=== PATIENT | male | born 1995 | race Caucasian/White ===

== ENCOUNTER 2017-03-05 17:13 | Emergency (ER) | payer MEDICAID, OTHER ==
[2017-03-05 17:36] VITALS: TEMP 98.4
[2017-03-05] MEDS ORDERED: METHOCARBAMOL 750 MG TAB PO ONE (20:10)
[2017-03-05] MEDS ORDERED: IBUPROFEN 600 MG TAB PO ONE (20:10)
--- NOTE | 2017-03-05 21:37 | EDPHY ---
H & P Stated Complaint: snowboarding fall saturday/inj coccyx area/pain Source: Patient Exam Limitations: No limitations - Personal History Current Tetanus/Diphtheria Vaccine: Unsure - Medical/Surgical History Hx Asthma: No Hx Chronic Respiratory Disease: No Hx Diabetes: No Hx Cardiac Disease: No Hx Renal Disease: No Hx Cirrhosis: No Hx Alcoholism: No Hx HIV/AIDS: No Hx Splenectomy or Spleen Trauma: No Other PMH: appy - Social History Smoking Status: Current every day smoker Time Seen by Provider: 03/05/17 18:57 HPI/ROS: CHIEF COMPLAINT: low back and right buttock pain HISTORY OF PRESENT ILLNESS: 21-year-old male presents emergency department complaining of low back and buttock pain after a fall snowboarding 5 days ago. Patient went off of a jump and fell 10 feet onto a sharp rock on his butt. Patient states he has been laying on his abdomen since this time due to buttock and low back pain. Patient reports he had bruising and swelling to his right buttock. He has abrasions to his right buttock. Patient denies loss of control of his bowel or bladder, no saddle anesthesias he denies upper back pain , no abdominal pain. He denies neck pain or head strike. Patient has been taking 2 ibuprofen twice a day and icing his butt. He states today his pain is significantly better though his mom was concerned so they came to the emergency department. REVIEW OF SYSTEMS: A comprehensive 10 point review of systems is otherwise negative aside from elements mentioned in the history of present illness. (Marion Ocasio) - Physical Exam Exam: Physical Exam Gen: Alert and Oriented, NAD HEENT: PERRL, moist mucous membranes NECK: No C-spine tenderness CV: regular rate and regular rhythm PULM: CTAB, no wheezes ABDOMEN: soft, non tender to palpation, BS present BACK: Midline lumbar and sacral tenderness to palpation, right-sided paraspinal spasm NEURO: Neurologically grossly intact EXTREMITIES: 2+ pedal pulses, sensation intact to light touch full passive range of motion right hip SKIN: multiple abrasions to right buttock PSYCH: answers questions appropriately. (Marion Ocasio) Constitutional: Initial Vital Signs Temperature (C) 36.9 C 03/05/17 17:33 Heart Rate 67 03/05/17 17:33 Respiratory Rate 18 03/05/17 17:33 Blood Pressure 115/59 L 03/05/17 17:33 O2 Sat (%) 98 03/05/17 17:33 O2 Delivery Mode Room Air Allergies/Adverse Reactions: No Known Allergies Allergy (Verified 03/05/17 17:32) Home Medications: Medication Instructions Recorded Methocarbamol [Robaxin 750 mg (*)] 750 mg PO QID PRN #20 tab 03/05/17 Medical Decision Making - Diagnostics Imaging: Discussed imaging studies w/ home aid Radiologist, I viewed and interpreted images myself - Diagnostics Imaging Results: Imaging Impressions Lumbar Spine X-Ray 03/05/17 19:01 Impression: Normal limited lumbar spine series. Sacrum and Coccyx X-Ray 03/05/17 19:01 Impression: 1. Ventral angulation of the distal tip of the coccyx. This could represent recent injury. Lumbar Spine CT 03/05/17 20:07 Impression: 1. No acute osseous at about is seen about the thoracic spine.. 2. Soft tissue edema or fluid seen posterior to the paraspinal musculature. This could represent hematoma formation. Pelvis CT 03/05/17 20:09 Impression: 1. Possible fracture of the distal tip of the coccyx. 2. Soft tissue edema or possibly hematoma along the posterior musculature mid to upper pelvis. Findings discussed with Marion Ocasio NP at 21:24 hour, 03/05/2017. ED Course/Re-evaluation: 21-year-old male presents with lumbar sacral pain and paraspinal spasm. Plain x -rays obtained, after exam and seeing the patients significant spasms a CT has been ordered. Patient is given 600 mg of ibuprofen and [address] shows a fluid collection in likely hematoma posterior to paraspinal muscles, possible distal coccyx fracture. Patient will be discharged home, I have recommended ice or heat whichever feels better, ibuprofen and have sent home with a prescription for Robaxin. Patient will follow up with neurosurgery for any worsening symptoms or if he doesn't continue to improve. (Marion Ocasio) Differential Diagnosis: The differential diagnosis for the patient's trauma included but was not limited to intracranial injury, long bone and pelvic bone fractures, spinal injury, intra-abdominal injury, and intra-thoracic injury. (Marion Ocasio) Other Provider: The patient was evaluated and managed by the Physician Exercise Instruct/ Nurse Practitioner. My co-signature indicates that I have reviewed this chart and I agree with the findings and plan of care as documented. I am the secondary supervising physician. (Domenica Portillo) - Data Points Medications Given: Discontinued Medications Ibuprofen (Motrin) 600 mg PO EDNOW ONE Stop: 03/05/17 20:11 Last Admin: 03/05/17 20:47 Dose: 600 mg Methocarbamol (Robaxin) 750 mg PO EDNOW ONE Stop: 03/05/17 20:11 Last Admin: 03/05/17 20:48 Dose: 750 mg Departure - Departure Disposition: Home, Routine, Self-Care Clinical Impression: Fractured coccyx, Hematoma of muscle Condition: Good Instructions: Coccyx Injury (ED), Hematoma (ED) Additional Instructions: Alternate ice with heat, take 600 mg of ibuprofen every 8 hours with food for 3- 5 days, take Robaxin as needed for muscle spasms, gentle range of motion, gentle massage. Follow up with the neurosurgeon for symptoms that are not improving in the next week or any worsening symptoms. Return to the emergency department for any new symptoms or concerns. Referrals: Max Barahona MD [Medical Doctor] - As per Instructions (Neurosurgeon on-call) Prescriptions: Methocarbamol [Robaxin 750 mg (*)] 750 mg PO QID PRN #20 tab PRN Reason: Spasms
[2017-03-05 23:24] VITALS: BP 118/63; PULSE 68; RESP 16; O2SAT 96
== END 2017-03-05 22:00 | disposition home or self-care (01) ==
DX: S30.0XXA Contusion of lower back and pelvis, initial encounter (principal); F17.200 Nicotine dependence, unspecified, uncomplicated; V00.131A Fall from skateboard, initial encounter; Y92.89 Other specified places as the place of occurrence of the external cause; Y99.8 Other external cause status; Y93.23 Activity, snow (alpine) (downhill) skiing, snowboarding, sledding, tobogganing and snow tubing

== ENCOUNTER 2017-12-01 03:45 | Emergency (ER) | payer MEDICAID ==
[2017-12-01 03:56] VITALS: BP 143/100; PULSE 102; RESP 18; TEMP 97.2; O2SAT 94
== END 2017-12-01 04:15 | disposition left against medical advice (07) ==
LOC: EDUNIT#
DX: Z53.21 Procedure and treatment not carried out due to patient leaving prior to being seen by health care provider (principal)